=== PATIENT | female | born 1995 ===

== ENCOUNTER 2021-03-10 22:36 | Emergency (ER) | payer SELFPAY ==
[~2021-03-10] VITALS: Ht 160 cm; Wt 54.5 kg
[2021-03-10] MEDS ORDERED: PERCOCET 325 MG1 TA2 PO (23:38)
[2021-03-11] MEDS ORDERED: PERCOCET 325 MG1 TA2 PO (00:31)
[2021-03-11] MEDS ORDERED: NORCO 325 MG-51 TAB PO (00:33)
[2021-03-11] MEDS ORDERED: BACITRACIN TOPIC1 TU TOP (00:40)
[2021-03-11 01:03] VITALS: BP 135/79; PULSE 89; TEMP 98.4
== END 2021-03-11 01:03 | disposition home or self-care (01) ==
LOC: COL.ER 22:36
DX: T23.302A Burn of third degree of left hand, unspecified site, initial encounter (principal); T31.10 Burns involving 10-19% of body surface with 0% to 9% third degree burns; X04.XXXA Exposure to ignition of highly flammable material, initial encounter
CPT/HCPCS: J2250; J3010